=== PATIENT | male | born 1985 | race Caucasian/White ===

== ENCOUNTER 2017-10-12 14:05 | Observation (INO) | payer MEDICAID, OTHER ==
[2017-10-12] MEDS: LIDOCAINE/MYLANTA 40 ML BTL PO (16:42)
[2017-10-12] MEDS: SOD CHLORIDE 0.9% 1,000 ML IV ×2 (16:42→19:35)
[2017-10-12] MEDS: ONDANSETRON 4 MG INJ IV ×2 (16:42)
[2017-10-12 16:50] LABS: ADD MAN DIFF? NO
[2017-10-12 16:52] LABS: BASOPHILS % 0.2 % (0.0-2.0); HEMATOCRIT 54.7 % (42.0-52.0); HEMOGLOBIN 17.8 g/dl (14.0-18.0); LYMPHOCYTES # 1.4 10^3/ul (0.8-2.9); LYMPHOCYTES % 6.9 % (15.0-51.0); MEAN CORPUSCULAR HEMOGLOBIN 22.6 pg (29.0-33.0); MEAN CORPUSCULAR HGB CONC 32.5 g/dl (32.0-37.0); MEAN CORPUSCULAR VOLUME 69.6 fl (82.0-101.0); MEAN PLATELET VOLUME 10.1 fl (7.4-10.4); MONOCYTE # 1.5 10^3/ul (0.3-0.9); MONOCYTES % 7.5 % (0.0-11.0); NEUTROPHIL # 16.7 10^3/ul (1.6-7.5); NEUTROPHILS % 84.8 % (39.0-77.0); PLATELET COUNT 346 10^3/UL (140-415); RED BLOOD COUNT 7.86 10^6/ul (4.70-6.10); RED CELL DISTRIBUTION WIDTH 16.2 % (11.5-14.5)
[2017-10-12 16:52] LABS: WHITE BLOOD COUNT 19.7 10^3/ul (4.8-10.8)
[2017-10-12 17:18] LABS: ALANINE AMINOTRANSFERASE 45 IU/L (13-69); ALBUMIN 5.3 g/dl (3.3-4.9); ALBUMIN/GLOBULIN RATIO 1.65; ALKALINE PHOSPHATASE 70 IU/L (42-121); ANION GAP 19 (8-16); ASPARTATE AMINO TRANSFERASE 39 IU/L (15-46); BILIRUBIN,INDIRECT 1.1 mg/dl (0-1.1); BILIRUBIN,TOTAL 1.1 mg/dl (0.2-1.3); BLOOD UREA NITROGEN 34 mg/dl (7-20); CALCIUM 9.9 mg/dl (8.4-10.2); CARBON DIOXIDE 35 mmol/L (21-31); CHLORIDE 88 mmol/L (97-110); CREATININE 1.36 mg/dl (0.61-1.24); GLUCOSE 135 mg/dl (70-220); LIPASE 291 U/L (23-300); SODIUM 138 mmol/L (135-144); TOTAL PROTEIN 8.5 g/dl (6.1-8.1)
[2017-10-12 17:21] LABS: LACTIC ACID 3.4 mmol/L (0.5-2.0)
[2017-10-12] MEDS ORDERED: ONDANSETRON 4 MG INJ IV (20:00)
[2017-10-12] MEDS ORDERED: ACETAMINOPHEN 325 MG TAB PO (20:00)
[2017-10-12 20:26] LABS: ADD UMIC YES; UR ASCORBIC ACID NEGATIVE (NEGATIVE); UR BILIRUBIN (Dip) NEGATIVE (NEGATIVE); UR BLOOD (Dip) 2+ mg/dL (NEGATIVE); UR CLARITY CLEAR (CLEAR); UR COLOR YELLOW (YELLOW); UR GLUCOSE (Dip) NEGATIVE (NEGATIVE); UR KETONES (Dip) 1+ mg/dL (NEGATIVE); UR LEUKOCYTE ESTERASE (Dip) NEGATIVE Leu/ul (NEGATIVE); UR MUCUS FEW /HPF (NONE SEEN); UR NITRITE (Dip) NEGATIVE (NEGATIVE); UR RBC 1 /HPF (0-5); UR SPECIFIC GRAVITY (Dip) 1.026 (1.003-1.030); UR TOTAL PROTEIN (Dip) 1+ mg/dl (NEGATIVE); UR UROBILINOGEN (Dip) NEGATIVE (NEGATIVE); UR WBC 3 /HPF (0-5)
[2017-10-12] MEDS: morphine 4 MG/ML VIAL IV (20:27)
[2017-10-12 22:12] LABS: LACTIC ACID 1.3 mmol/L (0.5-2.0)
[2017-10-12] MEDS: DEXTROSE 5%-0.45% NACL 1,000 ML IV (22:38)
[2017-10-12 23:25] LABS: AMPHETAMINE/METHAMPHETAMINE Negative (NEGATIVE); BARBITURATES Negative (NEGATIVE); BENZODIAZEPINES Negative (NEGATIVE); CANNABINOIDS Positive (NEGATIVE); COCAINE Negative (NEGATIVE); OPIATES Negative (NEGATIVE)
[2017-10-12] MEDS: METOCLOPRAMIDE 10 MG INJ IV (23:49)
[2017-10-12] MEDS: morphine 2 MG INJ IV (23:49)
[2017-10-13 01:03] LABS: LACTIC ACID 1.2 mmol/L (0.5-2.0)
[2017-10-13] MEDS: METOCLOPRAMIDE 10 MG INJ IV ×2 (05:29→13:08)
[2017-10-13 05:30] LABS: ADD MAN DIFF? NO
[2017-10-13] MEDS: morphine 2 MG INJ IV ×2 (05:30→13:09)
[2017-10-13 05:41] LABS: BASOPHIL # 0.1 10^3/ul (0.0-0.1); BASOPHILS % 0.4 % (0.0-2.0); EOSINOPHILS % 0.2 % (0.0-7.0); HEMATOCRIT 43.3 % (42.0-52.0); HEMOGLOBIN 14.3 g/dl (14.0-18.0); LYMPHOCYTES # 1.8 10^3/ul (0.8-2.9); LYMPHOCYTES % 13.4 % (15.0-51.0); MEAN CORPUSCULAR HEMOGLOBIN 23.2 pg (29.0-33.0); MEAN CORPUSCULAR VOLUME 70.2 fl (82.0-101.0); MONOCYTE # 1.1 10^3/ul (0.3-0.9); MONOCYTES % 8.7 % (0.0-11.0); NEUTROPHIL # 10.1 10^3/ul (1.6-7.5); NEUTROPHILS % 76.9 % (39.0-77.0); PLATELET COUNT 267 10^3/UL (140-415); RED BLOOD COUNT 6.17 10^6/ul (4.70-6.10); RED CELL DISTRIBUTION WIDTH 14.6 % (11.5-14.5)
[2017-10-13 05:41] LABS: WHITE BLOOD COUNT 13.2 10^3/ul (4.8-10.8)
[2017-10-13] MEDS: DEXTROSE 5%-0.45% NACL 1,000 ML IV ×2 (06:00→07:01)
[2017-10-13 06:05] LABS: ALANINE AMINOTRANSFERASE 42 IU/L (13-69); ALBUMIN 3.8 g/dl (3.3-4.9); ALKALINE PHOSPHATASE 44 IU/L (42-121); ANION GAP 13 (8-16); ASPARTATE AMINO TRANSFERASE 24 IU/L (15-46); BILIRUBIN,INDIRECT 0.9 mg/dl (0-1.1); BILIRUBIN,TOTAL 0.9 mg/dl (0.2-1.3); BLOOD UREA NITROGEN 18 mg/dl (7-20); CALCIUM 8.3 mg/dl (8.4-10.2); CARBON DIOXIDE 32 mmol/L (21-31); CHLORIDE 96 mmol/L (97-110); CHOL/HDL RATIO 4.1 RATIO; CHOLESTEROL 171 mg/dl (100-200); CREATININE 0.97 mg/dl (0.61-1.24); GLUCOSE 123 mg/dl (70-220); HDL CHOLESTEROL 41 mg/dl (28-63); LDL CHOLESTEROL,CALCULATED 117 mg/dl; MAGNESIUM 2.4 mg/dl (1.7-2.5); PHOSPHORUS 3.6 mg/dl (2.5-4.9); POTASSIUM 3.5 mmol/L (3.5-5.1); SODIUM 137 mmol/L (135-144); TRIGLYCERIDES 67 mg/dl (0-149)
[2017-10-13 07:55] LABS: THYROID STIMULATING HORMONE 0.489 MIU/L (0.465-4.680)
[2017-10-13 08:21] LABS: HEMOGLOBIN A1C 5.2 % (0-5.9)
[2017-10-13] MEDS: FAMOTIDINE 20 MG INJ IV (08:44)
[2017-10-13] MEDS: DOCUSATE SODIUM 100 MG CAP PO (08:44)
[2017-10-13] MEDS: ONDANSETRON 4 MG INJ IV (08:45)
[2017-10-13 11:26] LABS: INR 1.01; PROTIME 13.4 Sec (11.9-14.9)
[2017-10-13] MEDS ORDERED: AL HYDROX/MG HYDROX/SIMETH 30 ML CUP PO (15:30)
[2017-10-14] MEDS ORDERED: PANTOPRAZOLE (EC) 40 MG TAB PO (06:00)
== END 2017-10-13 16:20 | disposition left against medical advice (07) ==
LOC: FTE 14:05 → PP2 19:52
DX: R10.13 Epigastric pain (principal); R11.2 Nausea with vomiting, unspecified; E86.0 Dehydration; D75.1 Secondary polycythemia; F10.10 Alcohol abuse, uncomplicated; K21.9 Gastro-esophageal reflux disease without esophagitis; F12.10 Cannabis abuse, uncomplicated; Z72.0 Tobacco use; Z53.21 Procedure and treatment not carried out due to patient leaving prior to being seen by health care provider
CPT/HCPCS: 36415; 74176; 80048; 80053; 80061; 80076; 80307; 81001; 83036; 83605; 83690; 83735; 84100; 84443; 85025; 85610; 96361; 96374; 96375; 99285-25; G0378

== ENCOUNTER 2017-12-02 12:18 | Emergency (ER) | payer OTHER, MEDICAID ==
[2017-12-02] MEDS: SOD CHLORIDE 0.9% 1,000 ML IV ×2 (14:12→16:20)
[2017-12-02] MEDS: ONDANSETRON 4 MG INJ IV (14:12)
[2017-12-02] MEDS: morphine 4 MG/ML VIAL IV (14:12)
[2017-12-02 14:21] LABS: ADD MAN DIFF? NO
[2017-12-02 14:25] LABS: WHITE BLOOD COUNT 16.4 10^3/ul (4.8-10.8)
[2017-12-02 14:25] LABS: BASOPHIL # 0.1 10^3/ul (0.0-0.1); BASOPHILS % 0.3 % (0.0-2.0); HEMATOCRIT 52.8 % (42.0-52.0); LYMPHOCYTES # 2.6 10^3/ul (0.8-2.9); LYMPHOCYTES % 15.8 % (15.0-51.0); MEAN CORPUSCULAR HEMOGLOBIN 22.6 pg (29.0-33.0); MEAN CORPUSCULAR HGB CONC 32.2 g/dl (32.0-37.0); MEAN CORPUSCULAR VOLUME 70.1 fl (82.0-101.0); MONOCYTE # 1.2 10^3/ul (0.3-0.9); MONOCYTES % 7.5 % (0.0-11.0); NEUTROPHIL # 12.5 10^3/ul (1.6-7.5); PLATELET COUNT 338 10^3/UL (140-415); RED BLOOD COUNT 7.53 10^6/ul (4.70-6.10); RED CELL DISTRIBUTION WIDTH 14.7 % (11.5-14.5)
[2017-12-02 14:44] LABS: ALANINE AMINOTRANSFERASE 33 IU/L (13-69); ALBUMIN 4.9 g/dl (3.3-4.9); ALBUMIN/GLOBULIN RATIO 1.53; ALKALINE PHOSPHATASE 60 IU/L (42-121); ANION GAP 18 (8-16); ASPARTATE AMINO TRANSFERASE 19 IU/L (15-46); BILIRUBIN,INDIRECT 0.8 mg/dl (0-1.1); BILIRUBIN,TOTAL 0.8 mg/dl (0.2-1.3); BLOOD UREA NITROGEN 18 mg/dl (7-20); CALCIUM 9.8 mg/dl (8.4-10.2); CARBON DIOXIDE 38 mmol/L (21-31); CHLORIDE 90 mmol/L (97-110); CREATININE 1.42 mg/dl (0.61-1.24); GLUCOSE 126 mg/dl (70-220); LIPASE 72 U/L (23-300); POTASSIUM 3.8 mmol/L (3.5-5.1); SODIUM 142 mmol/L (135-144); TOTAL PROTEIN 8.1 g/dl (6.1-8.1)
[2017-12-02 16:40] LABS: ADD UMIC YES; UR ASCORBIC ACID NEGATIVE (NEGATIVE); UR BACTERIA FEW /HPF (NONE SEEN); UR BILIRUBIN (Dip) NEGATIVE (NEGATIVE); UR BLOOD (Dip) 1+ mg/dL (NEGATIVE); UR CLARITY CLOUDY (CLEAR); UR COLOR YELLOW (YELLOW); UR GLUCOSE (Dip) NEGATIVE (NEGATIVE); UR KETONES (Dip) 1+ mg/dL (NEGATIVE); UR LEUKOCYTE ESTERASE (Dip) NEGATIVE Leu/ul (NEGATIVE); UR MUCUS MANY /HPF (NONE SEEN); UR NITRITE (Dip) NEGATIVE (NEGATIVE); UR RBC 1 /HPF (0-5); UR SPECIFIC GRAVITY (Dip) 1.026 (1.003-1.030); UR TOTAL PROTEIN (Dip) 1+ mg/dl (NEGATIVE); UR UROBILINOGEN (Dip) NEGATIVE (NEGATIVE); UR WBC 8 /HPF (0-5)
[2017-12-02 17:12] LABS: AMPHETAMINE/METHAMPHETAMINE Negative (NEGATIVE); BARBITURATES Negative (NEGATIVE); BENZODIAZEPINES Negative (NEGATIVE); CANNABINOIDS Positive (NEGATIVE); COCAINE Negative (NEGATIVE); OPIATES Positive (NEGATIVE)
== END 2017-12-02 18:03 | disposition home or self-care (01) ==
LOC: FTE 12:18
DX: R10.84 Generalized abdominal pain (principal); R11.10 Vomiting, unspecified; F12.10 Cannabis abuse, uncomplicated
CPT/HCPCS: 36415; 74176; 80053; 80307; 81001; 83690; 85025; 96374; 96375; 99285-25